=== PATIENT | female | born 1995 | race Caucasian/White ===

== ENCOUNTER 2017-11-14 15:40 | Observation (INO) ==
[2017-11-14] MEDS ORDERED: NORMAL SALINE 10 ML SYRINGE FLUSH IVP PRN ×2 (15:55→18:32)
[2017-11-14] MEDS ORDERED: Lactated Ringers-OB Dept 1,000 ML ONE (16:09)
[2017-11-14] MEDS ORDERED: TERBUTALINE SULFATE 1 MG/1 ML SDV SUBCUT ONE (16:14)
[2017-11-14] MEDS: Lactated Ringers-OB Dept 1,000 ML PRIMARY IV SCH ×2 (16:34→18:58)
[2017-11-14] MEDS: BETAMET ACET/BETAMET NA PH 6 MG/1 ML - 5 ML IM SCH (16:35)
--- NOTE | 2017-11-14 18:13 | DI ---
EXAM: US Uterus, Limited CLINICAL HISTORY: ITS.REASON messuring large for dates Physician Notes: Tech Comments: TECHNIQUE: Real-time ultrasound of the maternal uterus (limited) with image documentation. COMPARISON: 10/30/17 FINDINGS: Single intrauterine gestation. heart rate is 156 bpm. JACKIE is 12. 5 cm. Presentation is vertex. Placenta is anterior grade 1. No retroplacental hemorrhage. Normal activity was seen. Average ultrasound age is 35 weeks and 0 days. IMPRESSION: Single viable intrauterine gestation with ultrasound age of 35 weeks and 0 days.
[2017-11-14] MEDS ORDERED: LIDOCAINE W/ SODIUM BICARB 0.5 ML SYR SUBD PRN (18:32)
[2017-11-14] MEDS ORDERED: Ondansetron ODT Tab 4 MG TAB PO PRN (18:32)
[2017-11-14] MEDS ORDERED: CALCIUM CARBONATE 500 MG (TUMS) CHEWABLE TABLET PO PRN (18:32)
[2017-11-14] MEDS ORDERED: ONDANSETRON 4 MG/2 ML VIAL IVP PRN (18:32)
--- NOTE | 2017-11-14 18:42 | OB.PROGRES ---
Date and Time of Service: 11/14/17 @ 1830 Interval History: Alisia is a 22 yo G1 at 34 0/7 weeks by first trimester u/s who presented to the office for routine visit today complaining of increased vaginal pressure. An FFN was collected, which returned later as positive and a vaginosis panel was collected. She was sent to labor and delivery for further evaluation. Objective - Cervical Exam Cervical Exam: FT/thick/-2/vertex [place]: every 5 minutes currently. Palpating mild. Pt reports not feeling anything except for some pressure. Heart Rate: 150 baseline, moderate variability, + accels. Heart Rate Interpretation Category: Category I - Vital Signs Last Taken Vital Signs: Vital Signs - Last Taken Temperature 97.3 F 11/14/17 15:55 Pulse Rate 91 11/14/17 15:55 Respiratory Rate 14 11/14/17 15:55 Pulse Ox 97 11/14/17 15:55 Assessment and Plan - Patient Problems (1) uterine contractions Current Visit: Yes Status: Acute Code(s): O47.9 - False labor, unspecified (2) Positive fibronectin at 22 weeks to 34 weeks gestation Current Visit: Yes Status: Acute Code(s): R87.89 - Other abnormal findings in specimens from female genital organs - Assessment / Plan Additional Assessment/Plan Details: -has received 1 dose of steroids, will repeat in 24 hours. -continuous monitoring. -got 1 dose of terbutaline, which now appears to have worn off as pt is marshal again. Will start procardia 10 mg po q4h currently. -GBS has been collected. -baby currently measuring at the 67th percentile, vertex presentation and normal JACKIE at 12.5. -observe 24 hours at the least given that she [place] 50 miles from the hospital. -plan discussed with pt and her spouse, they are in agreement. All questions answered.
[2017-11-14] MEDS: Lactated Ringers 1,000 ML PRIMARY IV SCH (19:00)
[2017-11-14] MEDS: NIFEdipine 10 MG CAPSULE PO SCH ×2 (19:07→23:08)
[2017-11-14] MEDS ORDERED: Zolpidem Tab 5 MG TAB PO PRN (21:26)
[2017-11-15 01:05] VITALS: O2SAT 99
[2017-11-15] MEDS: NIFEdipine 10 MG CAPSULE PO SCH ×4 (03:08→13:28)
[2017-11-15] MEDS ORDERED: CLOTRIMAZOLE 21 GM 3-DAY VAG CREAM VAGINAL ONE (03:13)
[2017-11-15] MEDS ORDERED: metroNIDAZOLE Tab 500 MG TAB PO ONE (03:13)
[2017-11-15] MEDS ORDERED: NIFEdipine 10 MG CAPSULE PO ONE ×2 (04:10→04:15)
[2017-11-15] MEDS: Lactated Ringers-OB Dept 1,000 ML PRIMARY IV SCH ×5 (05:43→17:54)
[2017-11-15] MEDS: Lactated Ringers 1,000 ML PRIMARY IV SCH ×2 (06:33→17:55)
[2017-11-15] MEDS ORDERED: ACETAMINOPHEN 325 MG TABLET PO PRN (06:55)
[2017-11-15] MEDS ORDERED: Prenatal Multivitamin Tab 1 TAB TAB PO SCH (09:00)
[2017-11-15] MEDS ORDERED: NIFEdipine 10 MG CAPSULE PO PRN (13:25)
[2017-11-15] MEDS: BETAMET ACET/BETAMET NA PH 6 MG/1 ML - 5 ML IM SCH (16:34)
[2017-11-15] MEDS ORDERED: CLOTRIMAZOLE 21 GM 3-DAY VAG CREAM VAGINAL SCH (21:00)
[2017-11-15] MEDS ORDERED: metroNIDAZOLE Tab 500 MG TAB PO SCH (23:09)
[2017-11-15 23:24] VITALS: BP 122/69; RESP 18; TEMP 97.5
--- NOTE | 2017-11-25 21:24 | OB.PROGRES ---
Date and Time of Service: 11/15/17 @ 0913 Interval History: Feeling better today. Denies MALIK, RUQ pain, increased edema. Feels like contractions have lessened significantly. No problems after the celestone injection. Baby continues to move well. Denies vag bleeding or gushes of fluid. Really would like to go home tonight after her second celestone shot if things remain stable. Objective - Cervical Exam Cervical Exam: /0 per RN [place]. [place]: no contractions noted on monitor or felt by pt Heart Rate: no decels, moderate variability Heart Rate Interpretation Category: Category I - Vital Signs Last Taken Vital Signs: Vital Signs - Last Taken Temperature 97.5 F 11/15/17 19:00 Pulse Rate 70 11/15/17 19:00 Respiratory Rate 18 11/15/17 19:00 Blood Pressure 122/69 11/15/17 19:00 Pulse Ox 99 11/14/17 19:30 Assessment and Plan - Patient Problems (1) uterine contractions Status: Acute Code(s): O47.9 - False labor, unspecified (2) Positive fibronectin at 22 weeks to 34 weeks gestation Status: Acute Code(s): R87.89 - Other abnormal findings in specimens from female genital organs - Assessment / Plan Additional Assessment/Plan Details: -will continue to monitor throughout today. -continue flagyl for BV and diflucan for yeast vaginitis. -second celestone shot tonight. -no work for now; pt is currently on spring break from school. - labor precautions discussed. -possible d/c home tonight. DISCHARGE NOTE: ADMITTING DIAGNOSIS: contractions, + FFN, bacterial vaginosis, yeast vaginitis DISCHARGE DIAGNOSIS: Same, delivered. Outcome: contractions have slowed significantly, reassuring heart status. Disposition: home, modified bedrest Diet: regular F/u: next week in the office with Dr. Henderson, sooner prn.
== END 2017-11-15 20:05 | disposition home or self-care (01) ==
LOC: OBOP 15:40 → OBIP 15:40
PROVIDERS: ADMIT Family Medicine; ATTEND Family Medicine

== ENCOUNTER 2017-11-17 00:43 | Observation (INO) ==
[~2017-11-17 00:43] MED LIST: NORMAL SALINE 10 ML SYRINGE FLUSH IVP PRN
[2017-11-17 01:41] LABS: Hematocrit [HCT] 36.9 % (37.0-47.0); Hemoglobin [HGB] 12.3 g/dL (12.0-16.0); MEAN CORPUSCULAR HEMOGLOBIN 29.9 PG (27-31); MEAN CORPUSCULAR HGB CONC 33.3 g/dL (33-37); MEAN CORPUSCULAR VOLUME 89.8 FL (81-99); MEAN PLATELET VOLUME 10.6 FL (7.4-12.2); RED BLOOD COUNT 4.11 10^6/uL (4.20-5.40)
[2017-11-17 01:50] LABS: BLOOD UREA NITROGEN 11 mg/dL (7-22); SERUM ALBUMIN 3.5 g/dL (3.5-4.8); Uric Acid 2.6 mg/dl (2.5-6.2)
[2017-11-17] MEDS ORDERED: ACETAMINOPHEN 500 MG TABLET PO ONE (02:11)
[2017-11-17] MEDS ORDERED: CALCIUM CARBONATE 500 MG (TUMS) CHEWABLE TABLET PO ONE (02:11)
[2017-11-17] MEDS: Lactated Ringers-OB Dept 1,000 ML PRIMARY IV SCH ×3 (03:18→12:50)
[2017-11-17] MEDS ORDERED: NIFEdipine 10 MG CAPSULE PO SCH (06:45)
[2017-11-17] MEDS ORDERED: metroNIDAZOLE Tab 500 MG TAB PO SCH (09:00)
[2017-11-17 09:27] LABS: BILIRUBIN,URINE NEGATIVE (NEG); CLARITY,URINE Slightly Cloudy (CLEAR); COLOR,URINE YELLOW (Y); GLUCOSE, URINE (UA) NEGATIVE (NEG); OCCULT BLOOD,URINE NEGATIVE (NEG); PROTEIN,URINE NEGATIVE (NEG); UROBILINOGEN,URINE 0.2 EU/dL (0.2)
--- NOTE | 2017-11-17 09:32 | OB.PROGRES ---
Date and Time of Service: 11/17/17 @ 0845 Interval History: Pt is a 22 yo G1 at 34 3/7 weeks by first trimester u/s who has had an uncomplicated up until the past few weeks. On 11/15, she presented to the office for a routine visit and was complaining of increased pelvic pressure. Denied any contractions or cramping. She reported that her discharge hadn't changed. Denied any leakage of fluid. Baby had been moving normally. She was sent to labor and delivery for evaluation. On labor and delivery on that day, she was noted to be marshal every 2-3 minutes, fairly regular. She really wasn't feeling them at all. Cervix was FT/ thinning/0/soft. NST was reactive. U/s showed EFW to being the 67th percentile. JACKIE was 12.5. She was given a course of betamethasone Monday night and repeated 24 hours later. IVF were given, which slowed her contractions somewhat , but they didn't cease, so 1 dose of terbutaline was given. This had no effect on her contractions. Procardia was then initiated and quieted her uterus nicely. Her blood pressures were in the 120s/60s. She was denying AMLIK, except for after she took the procardia. No RUQ pain, not much edema. DTRs were normal , no clonus. After 24 hours, she was very stable. BP remained normal, absent to minimal contractions, NST was reactive. She was discharged home on scheduled procardia. Yesterday, she reports just feeling poorly and exhausted for most of the day. Last noc, she had a MALIK that was 'different' than the MALIK that she had from the procardia. Maybe having some RUQ twinges. Feels like her face is swollen. Hands are a little puffy, but not as puffy as they had been previously, according to the pt. She states that she is feeling cramping and contractions, mostly in her back. Denies any vag bleeding or leakage of fluid. Objective - Cervical Exam Cervical Exam: /0/soft/vertex per RN [place]: mild irritability, has had contractions up to 10 minutes apart off and on all noc. Heart Rate: 150s, reactive, no decels noted. Heart Rate Interpretation Category: Category I - Labs CBC and BMP: 11/17/17 01:28 11/17/17 01:28 - Vital Signs Last Taken Vital Signs: Vital Signs - Last Taken Temperature 97.4 F 11/17/17 05:50 Pulse Rate 63 11/17/17 05:50 Respiratory Rate 16 11/17/17 05:50 Blood Pressure 129/77 11/17/17 05:50 Pulse Ox 96 11/17/17 01:00 Assessment and Plan - Patient Problems (1) Proteinuria affecting in third trimester Current Visit: No Status: Acute Code(s): O12.13 - Gestational proteinuria, third trimester (2) Positive fibronectin at 22 weeks to 34 weeks gestation Current Visit: No Status: Acute Code(s): R87.89 - Other abnormal findings in specimens from female genital organs (3) uterine contractions Current Visit: No Status: Acute Code(s): O47.9 - False labor, unspecified - Assessment / Plan Additional Assessment/Plan Details: -spoke with Dr. Johnson at [facility] in [place]. Agrees with concern related to pt's blood pressures, MALIK, labs and contractions. Spot protein :creatinine ratio was elevated indicating proteinuria. Given that she will probably quickly develop pre-eclampsia with her current signs and symptoms and her early gestational age, will transfer to [place] for definitive care. -has received course of betamethasone 11/14-11/15. -will give mag sulfate bolus and maintenance for the transport. -currently being treated for yeast vaginitis (clotrimazole x 3 days) and bacterial vaginosis (flagyl), both diagnosed on 11/14. -GBS negative, collected earlier this week. - labs were all unremarkable. -discussed transfer with pt and her mom and they are in agreement with the plan.
[2017-11-17 09:36] LABS: URINE SAMPLE TYPE CLEAN CATCH URINE
[2017-11-17 09:37] LABS: BACTERIA,URINE FEW; SQUAMOUS EPITHELIAL CELL,UR FEW
[2017-11-17] MEDS ORDERED: NORMAL SALINE 10 ML SYRINGE FLUSH IVP PRN (10:05)
[2017-11-17] MEDS ORDERED: LIDOCAINE W/ SODIUM BICARB 0.5 ML SYR SUBD PRN (10:05)
[2017-11-17] MEDS ORDERED: LIDOCAINE HCL 2 % 10 ML JELLY URO-JECT TOPICAL PRN (10:05)
[2017-11-17] MEDS ORDERED: CALCIUM GLUCONATE 100 MG/1 ML - 10 ML IVP PRN (10:05)
[2017-11-17] MEDS ORDERED: ONDANSETRON 4 MG/2 ML VIAL IVP PRN (10:05)
[2017-11-17] MEDS ORDERED: Magnesium Sulfate 4gm (Premix) 4 GM/100 ML BAG IV ONE (10:05)
[2017-11-17] MEDS ORDERED: Magnesium Sulfate (Premix) 20 GM/500 ML BAG IV SCH (10:15)
[2017-11-17 11:49] VITALS: RESP 18; TEMP 97.6
[2017-11-17 11:51] VITALS: BP 145/90; O2SAT 97
[2017-11-18] MEDS ORDERED: Prenatal Multivitamin Tab 1 TAB TAB PO SCH (09:00)
== END 2017-11-17 12:29 | disposition home or self-care (01) ==
LOC: OBOP 00:43 → NUR 00:43 → OBIP 10:51
PROVIDERS: ADMIT Family Medicine; ATTEND Family Medicine

== ENCOUNTER 2017-12-21 23:15 | Inpatient (IN) ==
[2017-12-22 08:24] LABS: Hematocrit [HCT] 37.5 % (37.0-47.0); Hemoglobin [HGB] 12.7 g/dL (12.0-16.0); MEAN CORPUSCULAR HEMOGLOBIN 30.3 PG (27-31); MEAN CORPUSCULAR HGB CONC 33.9 g/dL (33-37); MEAN CORPUSCULAR VOLUME 89.5 FL (81-99); MEAN PLATELET VOLUME 10.5 FL (7.4-12.2); RED BLOOD COUNT 4.19 10^6/uL (4.20-5.40)
[2017-12-22 08:36] LABS: BLOOD UREA NITROGEN 9 mg/dL (7-22); SERUM ALBUMIN 3.5 g/dL (3.5-4.8)
[2017-12-22] MEDS ORDERED: CALCIUM CARBONATE 500 MG (TUMS) CHEWABLE TABLET PO PRN ×2 (08:54→23:45)
[2017-12-22] MEDS ORDERED: Naloxone Inj 0.01 MG in Normal Saline Flush 1 ML IVP PRN (08:54)
[2017-12-22] MEDS ORDERED: BUTORPHANOL TARTRATE 2 MG/1 ML VIAL IVP PRN (08:54)
[2017-12-22] MEDS ORDERED: NORMAL SALINE 10 ML SYRINGE FLUSH IVP PRN ×3 (08:54→23:45)
[2017-12-22] MEDS ORDERED: Phenylephrine Inj 50 MCG in Normal Saline Flush 0.5 ML IVP PRN (08:54)
[2017-12-22] MEDS ORDERED: CefOXitin Inj 2 GM in Sodium Chloride 0.9% 100 ML IV PRN (08:54)
[2017-12-22] MEDS ORDERED: NALOXONE 0.4 MG/1 ML VIAL IVP PRN (08:54)
[2017-12-22] MEDS ORDERED: LIDOCAINE HCL 2 % 10 ML JELLY URO-JECT TOPICAL PRN (08:54)
[2017-12-22] MEDS ORDERED: ONDANSETRON 4 MG/2 ML VIAL IVP PRN ×3 (08:54→23:45)
[2017-12-22] MEDS ORDERED: TERBUTALINE SULFATE 1 MG/1 ML SDV SUBCUT PRN (08:54)
[2017-12-22] MEDS ORDERED: Nalbuphine Inj 20 MG/ML Ampule IVP PRN ×2 (08:54→23:45)
[2017-12-22] MEDS ORDERED: Famotidine Inj 20 MG in Normal Saline Flush 10 ML IVP PRN ×5 (08:54→23:45)
[2017-12-22] MEDS ORDERED: Carboprost Inj 250 MCG/ML AMP IM PRN ×2 (08:54→23:45)
[2017-12-22] MEDS ORDERED: OXYTOCIN 10 UNIT/1 ML IM PRN (08:54)
[2017-12-22] MEDS ORDERED: METHYLERGONOVINE MALEATE 0.2 MG/1 ML VIAL IM PRN (08:54)
[2017-12-22] MEDS ORDERED: fentaNYL Inj 100 MCG/2 ML VIAL IV PRN (08:54)
[2017-12-22] MEDS ORDERED: ePHEDrine Inj 5 MG in Normal Saline Flush 1 ML IVP PRN (08:54)
[2017-12-22] MEDS ORDERED: CITRIC ACID/SODIUM CITRATE 30 ML CUP PO PRN (08:54)
[2017-12-22] MEDS ORDERED: diphenhydrAMINE 50 MG/1 ML VIAL IVP PRN (08:54)
[2017-12-22] MEDS ORDERED: Lidocaine 1% 10 MG/ML - 20 ML VIAL SUBCUT PRN (08:54)
[2017-12-22] MEDS ORDERED: MISOPROSTOL 200 MCG TABLET RECTAL PRN (08:54)
[2017-12-22] MEDS ORDERED: Metoclopramide Inj 10 MG/2 ML VIAL IV PRN (08:54)
[2017-12-22] MEDS ORDERED: LIDOCAINE W/ SODIUM BICARB 0.5 ML SYR SUBD PRN ×2 (08:54→19:35)
[2017-12-22] MEDS ORDERED: Oxytocin 20 Units + LR 20 UNIT/1,000 ML BAG IV SCH ×3 (09:00→23:45)
[2017-12-22] MEDS: Lactated Ringers-OB Dept 1,000 ML PRIMARY IV SCH ×3 (09:20→15:30)
--- NOTE | 2017-12-22 09:44 | OB.PROGRES ---
Date and Time of Service: 12/22/17 @ 0845 Objective - Labs CBC and BMP: 12/22/17 08:18 12/22/17 08:18 - Vital Signs Last Taken Vital Signs: Vital Signs - Last Taken Temperature 97.5 F 12/22/17 07:15 Pulse Rate 120 H 12/22/17 07:15 Respiratory Rate 18 12/22/17 07:15 Blood Pressure 128/71 12/22/17 07:20 Pulse Ox 94 12/22/17 07:15
[2017-12-22] MEDS ORDERED: Fent/Bupiv 2mcg/0.0625% Epid 250 ML ONE (09:49)
[2017-12-22] MEDS ORDERED: fentaNYL 2 MCG/BUPIVACAINE 0.0625%/NS 0.9% 250 ML BAG EPIDURAL SCH (10:30)
--- NOTE | 2017-12-22 10:33 | CRNA.PROCE ---
Central Neuraxis Block Placemt - - Safety Measures: Time Out Taken - - Type of Block: Epidural Reason for Block: Analgesia Moniters Used During Block: SPO2, NIBP Skin Prep Used: ChloroPrep Skin Infiltration - Enter Amount Used in Comment Field: 1% Xylocaine (mL): Yes ( skinwheal) Spinal Needle Used: 18 Hustead 80 mm Local Anesthetic - Enter Amount Used in Comment Field: 1.5 % Xylocaine with Epinephrine 1:200,000 (mL): Yes (5ml) Number of Centimeters Catheter Threaded: 4 Bioclusive Dressing Applied: Yes Anesthesia Time - Other Weight: 111.584 kg Height: 5 ft 9 in Body Mass Index (BMI): 36.3
--- NOTE | 2017-12-22 10:34 | CRNA.PROGR ---
<AMMY ALEXANDER - Last Filed: 12/22/17 10:33> Anesthesia Time - - Start date: 12/22/17 - Procedure/Recovery Time Anesthesia : Time In: 10:00 - Other Weight: 111.584 kg Height: 5 ft 9 in Body Mass Index (BMI): 36.3 Physical Status: P2 Obstetrics: Planned vaginal delivery w/ neuraxial labor anesthesia/analog <ALE NOGUEIRA - Last Filed: 12/22/17 21:28> Anesthesia Time - Procedure/Recovery Time Anesthesia : Time Out: 19:51
--- NOTE | 2017-12-22 17:21 | OB.PROGRES ---
Date and Time of Service: 12/22/17 @ 1700 Interval History: Pt is a 22 yo G1 at 39 3/7 weeks by early u/s who presented to labor and delivery late last noc with more painful contractions. She was 3/80 on initial check. She progressed to 4 cm this morning. She was given the option to stay in town and walk or stay, be admitted, and undergo amniotomy. She opted for admission. Amniotomy was completed with the return of clear fluid at approximately 0900. She requested an epidural for analgesia a short time later. An IUPC was eventually placed due to inadequate monitoring of her contractions as well as the need to augment her labor with pitocin. She progressed to 7 cm at 1500 and then just an anterior lip at 1630. She remains fairly comfortable with her epidural. Objective - Cervical Exam Cervical Exam: anterior lip/100/+1 per RN. [place]: contractions every 2 minutes, fairly regularly. Heart Rate: 150s, + accels, occasional early decelerations. Heart Rate Interpretation Category: Category I - Labs CBC and BMP: 12/23/17 04:08 12/22/17 08:18 - Vital Signs Last Taken Vital Signs: Vital Signs - Last Taken Temperature 97.8 F 12/22/17 14:00 Pulse Rate 86 12/22/17 15:00 Respiratory Rate 16 12/22/17 10:45 Blood Pressure 128/79 12/22/17 15:00 Pulse Ox 100 12/22/17 15:00 Assessment and Plan - Patient Problems (1) 39 weeks gestation of Status: Acute Code(s): Z3A.39 - 39 weeks gestation of - Assessment / Plan Additional Assessment/Plan Details: -GBS negative. -labor progressing fairly normally at this point. -baby does feel like he is LGA, will be cognizant of this at the time of delivery. Pt would not be an optimal candidate for forceps due to larger size of baby. -continue to monitor closely.
[2017-12-22] MEDS ORDERED: PHENYLEPHRINE 10,000 MCG/1 ML VIAL ONE (19:04)
[2017-12-22] MEDS ORDERED: ePHEDrine Inj 50 MG/ML AMP ONE (19:04)
[2017-12-22] MEDS ORDERED: Oxytocin 20 Units + LR 20 UNIT/1,000 ML BAG IV ONE ×2 (19:30→20:55)
[2017-12-22] MEDS ORDERED: ATROPINE SULFATE 0.4 MG/1 ML VIAL IVP PRN (19:35)
[2017-12-22] MEDS ORDERED: HYDROmorphone 2 MG/1 ML IVP PRN (19:35)
[2017-12-22] MEDS ORDERED: fentaNYL Inj 100 MCG/2 ML VIAL IVP PRN (19:35)
[2017-12-22] MEDS ORDERED: Ondansetron ODT Tab 8 MG TAB PO PRN (19:35)
[2017-12-22] MEDS ORDERED: Lactated Ringers 1,000 ML PRIMARY IV SCH (19:45)
[2017-12-22] MEDS ORDERED: ONDANSETRON 4 MG/2 ML VIAL ONE (20:46)
[2017-12-22] MEDS ORDERED: Lactated Ringers 1,000 ML PRIMARY IV ONE (21:23)
--- NOTE | 2017-12-22 21:29 | CRNA.PROGR ---
Anesthesia Time - - Start date: 12/22/17 End date: 12/22/17 - Procedure/Recovery Time Anesthesia : Time In: 19:52 Anesthesia : Time Out: 21:19 Anesthesia : Total Time: 87 - Total Anesthesia Time Total Anesthesia Time (minutes): 87 - Other Weight: 111.584 kg Height: 5 ft 9 in Body Mass Index (BMI): 36.3 Physical Status: P2 () Anesthesia Type: Spinal Block
--- NOTE | 2017-12-22 21:30 | CRNA.PROGR ---
Anesthesia Recovery Phase I - Post Anesthesia Evaluation Patient's Condition on Arrival in Phase I: Stable Patient's Condition on Arrival in Phase II: Stable Pain Level: 2
--- NOTE | 2017-12-22 21:31 | CRNA.PROGR ---
Post Anesthesia Phase II - Post Anesthesia Phase II Patient Stable and Discharged To: OB Care Assumed By Surgeon: Krissy Henderson MD Temperature: 97.7 F Pulse Rate: 90 Respiratory Rate: 18 Blood Pressure: 127/71 Pulse Ox: 98 Total Kirill Score at Discharge: 9 Post Anesthesia Discharge Criteria Met: Yes
[2017-12-22] MEDS: KETOROLAC 15 MG/1 ML VIAL IVP SCH (21:43)
[2017-12-22] MEDS ORDERED: KETOROLAC 15 MG/1 ML VIAL ONE (21:43)
[2017-12-22] MEDS ORDERED: D5-LR 1,000 ML PRIMARY IV ONE (22:01)
--- NOTE | 2017-12-22 22:53 | OB.OP.NOTE ---
Operative Report - - Surgeon: Andrew Henderson MD Career Specialist: Kali Vieyra MD Anesthesia Type: Regional Anesthesia Provider: Julia Carrillo CRNA Surgery Date: 12/22/17 Preoperative Diagnosis: Failure to descend, cephalopelvic disproportion Postoperative Diagnosis: same, delivered Procedure: Primary low transverse section Complications: none Estimated Blood Loss (mL): 250 Urine Output (mL): 200 Fluids: 1400 cc of LR; 1000 cc of LR with pitocin Indications: Pt has arrest of descent. She has been pushing very effectively x 2 hours, with no descent of the vertex. She exhausted and the baby was not low enough for forceps or vacuum assistance. She was counseled about her options, which included continuing to push or going for a primary section and she requested primary section after discussion with her family. Findings: viable male infant, deep in the pelvis. No meconium noted. Normal uterus, tubes and ovaries. Description of Procedure: The patient was taken to the operating room where spinal anesthesia was found to be adequate. She was then prepared and draped in the normal sterile fashion in the dorsal supine position with a leftward tilt. A Pfannenstiel skin incision was then made with the scalpel and carried through to the underlying layer of fascia with Bovie. The fascia was incised in the midline and the incision extended laterally with the Bovie. The superior aspect of the fascial incision was then grasped with Vicki clamps, elevated and the underlying rectus muscles dissected off bluntly. Attention was then turned to the inferior aspect of this incision which, in a similar fashion, was grasped with Vicki clamps and the rectus muscles dissected off both bluntly and with the Bovie. The rectus muscle was then in the midline, and the peritoneum identified and entered in digitally. The peritoneal incision was then extended superiorly and inferiorly with good visualization of the bladder. The Anshu retractor was then inserted and the vesicouterine peritoneum was identified. The lower uterine segment was incised in a transverse fashion with the scalpel. The uterine incision was then extended laterally in a blunt fashion. The infant' s head was delivered atraumaically with assistance from the ob nurse gently elevating the head from below.The nose and mouth were suctioned with the bulb suction and the cord clamped and cut. The was handed off to the awaiting nurse. Cord gases and cord blood were sent for analysis. The placenta was then removed manually; the uterus exteriorized, and cleared of all clots and debris. The uterine incision was repaired with 0 Vicryl in a running, locked fashion. A second layer of the same suture was used to obtain excellent hemostasis with regards to the uterine incision. There was a hematoma that formed superior to the superior part of the incision, which was briskly oozing and was oversewn in several locations by Dr. Vieyra. There was also oozing just lateral to the left side of the uterine incision which was also repaired with O-vircyl. The peritoneal cavity was then copiously irrigated with warm saline. The uterus was returned to the abdomen. The paracolic gutters were copiously irrigated with warm saline and a second look at the uterine incision continued to reveal excellent hemostasis. The peritoneum was closed with 3-0 Vicryl. The fascia was reapproximated with 0 vicryl in a running fashion, starting from each lateral margin and then meeting in the middle. The subcutaneous space was irrigated with copiously with warm saline and the closed first with 3-0 Vicryl and then more superficially with Insorb absorbable sutures. The skin was reapproximated with Steri-Strips and a Silverlon dressing applied. Fundal massage was completed with no clots in vaginal vault. The patient tolerated the procedure well. Sponge, lap, and needle counts were correct x2. Mefoxin was given preoperatively less than one hour prior to incision time. The patient was taken to the recovery room in stable condition. Patient Problems - Patient Problem List (1) 39 weeks gestation of Current Visit: Yes Status: Acute Code(s): Z3A.39 - 39 weeks gestation of Category: Medical (2) Cephalopelvic disproportion Current Visit: Yes Status: Acute Code(s): O33.9 - Maternal care for disproportion, unspecified Qualifiers: Cephalopelvic disproportion type: mixed maternal and factors Fetus number: single or unspecified fetus Qualified Code(s): O33.4XX0 - Maternal care for disproportion of mixed maternal and origin, not applicable or unspecified Category: Medical
[2017-12-22] MEDS ORDERED: KETOROLAC 15 MG/1 ML VIAL IVP SCH (23:45)
[2017-12-22] MEDS ORDERED: HYDROmorphone 2 MG/1 ML IV PRN (23:45)
[2017-12-22] MEDS ORDERED: Naloxone Inj 0.01 MG, Sodium Chloride 0.9% vial 1 ML IVP PRN ×2 (23:45)
[2017-12-22] MEDS ORDERED: DIPH,PERTUSS,TET(ADACEL) VAC/PF 0.5 ML (Tdap) IM ONE (23:45)
[2017-12-22] MEDS ORDERED: LANOLIN HPA 40 GM TUBE TOPICAL PRN (23:45)
[2017-12-22] MEDS ORDERED: diphenhydrAMINE 25 MG CAPSULE PO PRN (23:45)
[2017-12-22] MEDS ORDERED: diphenhydrAMINE 50 MG/1 ML VIAL IV PRN (23:45)
[2017-12-22] MEDS ORDERED: D5-LR 1,000 ML PRIMARY IV SCH (23:45)
[2017-12-23] MEDS: oxyCODONE-ACETAMINOPHEN 5-325 TAB PO PRN ×5 (01:31→19:37)
[2017-12-23] MEDS: KETOROLAC 15 MG/1 ML VIAL IVP SCH ×4 (04:15→21:31)
[2017-12-23 05:07] LABS: Hematocrit [HCT] 31.7 % (37.0-47.0); Hemoglobin [HGB] 10.7 g/dL (12.0-16.0); MEAN CORPUSCULAR HEMOGLOBIN 30.5 PG (27-31); MEAN CORPUSCULAR HGB CONC 33.8 g/dL (33-37); MEAN CORPUSCULAR VOLUME 90.3 FL (81-99); MEAN PLATELET VOLUME 11.3 FL (7.4-12.2); RED BLOOD COUNT 3.51 10^6/uL (4.20-5.40)
[2017-12-23] MEDS: Senna/Docusate Tab 1 TAB TAB PO SCH ×2 (09:27→21:31)
[2017-12-23] MEDS: Prenatal Multivitamin Tab 1 TAB TAB PO SCH (09:27)
--- NOTE | 2017-12-23 16:10 | NB.PROGRES ---
Objective - Labs CBC and BMP: 12/23/17 04:08 12/22/17 08:18 - Vital Signs Last Taken Vital Signs: Vital Signs - Last Taken Temperature 98.5 F 12/23/17 13:00 Pulse Rate 110 H 12/23/17 13:00 Respiratory Rate 16 12/23/17 13:00 Blood Pressure 134/83 12/23/17 13:00 Pulse Ox 95 12/23/17 13:00 Weight: 246 lb Artie Exam - Vital Signs Weight: 246 lb Assessment and Plan - Patient Problems (1) 39 weeks gestation of Current Visit: Yes Status: Acute Code(s): Z3A.39 - 39 weeks gestation of (2) Cephalopelvic disproportion Current Visit: Yes Status: Acute Code(s): O33.9 - Maternal care for disproportion, unspecified Qualifiers: Cephalopelvic disproportion type: mixed maternal and factors Fetus number: single or unspecified fetus Qualified Code(s): O33.4XX0 - Maternal care for disproportion of mixed maternal and origin, not applicable or unspecified
[2017-12-23] MEDS ORDERED: IBUPROFEN 800 MG TABLET PO PRN (22:46)
[2017-12-24] MEDS: oxyCODONE-ACETAMINOPHEN 5-325 TAB PO PRN ×5 (00:36→21:26)
[2017-12-24] MEDS: Senna/Docusate Tab 1 TAB TAB PO SCH ×2 (09:11→21:27)
[2017-12-24] MEDS: Prenatal Multivitamin Tab 1 TAB TAB PO SCH (09:12)
[2017-12-24] MEDS: IBUPROFEN 800 MG TABLET PO PRN ×2 (09:12→15:39)
--- NOTE | 2017-12-24 12:49 | CRNA.PROGR ---
Anesthesia Note - Progress Notes Anesthesia Progress Note: sitting in bed preparing to use her breast pump. Cheerful. States she is doing well. Denies headache. Denies backache. Intake and Output (24hr x 4 totals) 12/22/17 12/23/17 12/24/17 12/25/17 05:59 05:59 05:59 05:59 Intake Total 7892 / 7892 900 / 900 500 / 500 Output Total 4800 / 4800 525 / 525 Balance 3092 / 3092 375 / 375 500 / 500 Vital Signs - Last Taken Temperature 97.8 F 12/24/17 09:00 Pulse Rate 118 H 12/24/17 09:00 Respiratory Rate 18 12/24/17 09:00 Blood Pressure 130/89 12/24/17 09:00 Pulse Ox 95 12/24/17 09:00 No apparent anesthetic difficulty.
--- NOTE | 2017-12-24 16:14 | OB.PROGRES ---
Subjective Post Op Day: 1 Pain Management: PO Rehman Catheter: No Flatus: No Diet: Regular [place] Feeding Method: Exculsively Ambulating: Yes Concerns / Additional Information: Breast feeding coming along. Pt denies chest pain, shortness of breath, calf pain or other concerns. Objective - General General Appearance: POSITIVE: No Acute Distress, Cooperative - Cardiovacular Cardiovascular Exam: POSITIVE: RRR, No Murmur Edema: +1 Pedal Edema Extremities: Negative Lilly's - Bilaterally - Respiratory Respiratory Exam: POSITIVE: Clear to Auscultation - Bilaterally, Breathing Non Labored - Abdomen Bowel Sounds: Hypoactive Abdominal Wound Assessment: [place] Dressing Assesstment / Plan (1) 39 weeks gestation of Current Visit: Yes Status: Acute (2) Cephalopelvic disproportion Current Visit: Yes Status: Acute Qualifiers: Cephalopelvic disproportion type: mixed maternal and factors Fetus number: single or unspecified fetus Qualified Code(s): O33.4XX0 - Maternal care for disproportion of mixed maternal and origin, not applicable or unspecified Assessment / Plan: -routine postop cares. -ambulate -continue breast feeding support. -rh positive. -rubella immune. -d/c home in 1-2 days
--- NOTE | 2017-12-24 18:20 | OB.PROGRES ---
Subjective Post Op Day: 2 Pain Management: PO Rehman Catheter: No Flatus: Yes Diet: Regular Feeding Method: Exculsively Ambulating: Yes Objective - General General Appearance: POSITIVE: No Acute Distress, Cooperative - Cardiovacular Cardiovascular Exam: POSITIVE: RRR, No Murmur Edema: +2 Pedal Edema Extremities: Negative Lilly's - Bilaterally - Respiratory Respiratory Exam: POSITIVE: Clear to Auscultation - Bilaterally, Breathing Non Labored - Abdomen Bowel Sounds: Present Abdominal Wound Assessment: Well Approximated Assesstment / Plan (1) 39 weeks gestation of Current Visit: Yes Status: Acute (2) Cephalopelvic disproportion Current Visit: Yes Status: Acute Qualifiers: Cephalopelvic disproportion type: mixed maternal and factors Fetus number: single or unspecified fetus Qualified Code(s): O33.4XX0 - Maternal care for disproportion of mixed maternal and origin, not applicable or unspecified Assessment / Plan: -routine cares. -rh positive. -rubella immune. -breast feeding going better. -pt still quite tired and would like to stay in the hospital an additional day for rest and breast feeding support. -probable d/c home tomorrow.
[2017-12-25] MEDS: oxyCODONE-ACETAMINOPHEN 5-325 TAB PO PRN ×3 (01:15→15:56)
[2017-12-25] MEDS: IBUPROFEN 800 MG TABLET PO PRN ×2 (01:16→10:35)
--- NOTE | 2017-12-25 09:30 | DCSUMMARY ---
Hospitalization Summary Admit Date: 12/22/17 Discharge Date: 12/25/17 Primary Diagnosis:: Term IUP Secondary Diagnosis:: H/o contractions and occasional elevated blood pressures necessitating transfer to [place] at 34 weeks for a 3 week stay. As of late, pt has remained very stable and has had reassuring screening. Primary Surgery and Date: Primary section due to cephalopelvis disproportion on 12/22/17. Delivery Type: Hospital Course: Pt was admitted in labor. Her labor was augmented with pitocin after an IUPC was placed. She eventually attained complete cervical dilation and pushed for a total of 2 hours. For the last hour and 15 minutes of pushing there was no descent of the vertex despite pushing on either side and eventually in the knee chest presentation. There was a lot of caput to the baby's head. After this duration of pushing with no descent of the baby's head, options were discussed with the pt, including continuing to push with position changes, versus proceeding to primary section. She and her family requested section. / Postop Complications: The pt had a very benign post-operative course. She was up and around early in the post-op period. She tolerated a regular diet. She remained normotensive. It did take some time, but eventually, her was nursing better. On POD #3, she was requesting discharge home. [place] Complications: Baby was monitored for hypoglycemia, but didn't require any intervention. No other issues were identified. Exam - Vitals Vital Signs: Vital Signs Temperature 97.6 F Temperature Source Oral Pulse Rate [Pulse Oximeter] 98 Pulse Rate 105 Respiratory Rate 14 Blood Pressure [Left Arm] 131/79 Blood Pressure [Right Arm] 134/87 Blood Pressure 127/71 Pulse Ox 96 Oxygen Flow Rate 1 Oxygen Delivery Method Room Air Height 5 ft 9 in Weight 246 lb - General General Appearance: No Acute Distress, Cooperative - Head Head Exam: Normal Inspection, Normocephalic - Respiratory Respiratory Exam: POSITIVE: Clear to Auscultation - Bilaterally, Breathing Non Labored - Cardiovascular Cardiovascular Exam: POSITIVE: RRR, No Murmur - GI/Abdominal GI/Abdominal Exam: POSITIVE: Normal Bowel Sounds, Non Tender, Non Distended, Soft - Neurological Neurological Exam: POSITIVE: Alert, Oriented x 3 - Psychiatric Psychiatric Exam: POSITIVE: Normal Affect, Normal Mood - Integumentary Integumentary Exam: POSITIVE: Normal Color, Warm, Dry Patient Problems - Patient Problem List (1) 39 weeks gestation of Status: Acute Code(s): Z3A.39 - 39 weeks gestation of Category: Medical (2) Cephalopelvic disproportion Status: Acute Code(s): O33.9 - Maternal care for disproportion, unspecified Qualifiers: Cephalopelvic disproportion type: mixed maternal and factors Fetus number: single or unspecified fetus Qualified Code(s): O33.4XX0 - Maternal care for disproportion of mixed maternal and origin, not applicable or unspecified Category: Medical
[2017-12-25] MEDS: Prenatal Multivitamin Tab 1 TAB TAB PO SCH (10:34)
[2017-12-25] MEDS: Senna/Docusate Tab 1 TAB TAB PO SCH (10:35)
[2017-12-25 16:20] VITALS: BP 143/97; RESP 17; TEMP 98.3; O2SAT 97
== END 2017-12-25 16:35 | disposition home or self-care (01) | DRG 766 ==
LOC: OBOP 23:15 → OBIP 12-22 08:55
PROVIDERS: ADMIT Family Medicine; ATTEND Family Medicine